=== PATIENT | female | born 1995 | race Caucasian/White ===

== ENCOUNTER → 2019-08-02 11:29 | Outpatient (BNVA) | payer OTHER, SELFPAY | PROVIDERS: Family Provider Family Medicine; PCP Family Medicine; Visit Provider Family Medicine | DX: M25.50 Pain in unspecified joint (principal); D64.9 Anemia, unspecified | CPT/HCPCS: 83540; 84550; 85651; 86431; 86618; 86666; 86757 ==

== ENCOUNTER → 2019-10-26 10:34 | Outpatient (BNVA) | payer OTHER, SELFPAY | PROVIDERS: Family Provider Family Medicine; PCP Family Medicine; Visit Provider Family Medicine | DX: M10.9 Gout, unspecified (principal); Z83.49 Family history of other endocrine, nutritional and metabolic diseases; M10.00 Idiopathic gout, unspecified site | CPT/HCPCS: 84443; 84550; 85651 ==

== ENCOUNTER → 2021-01-30 14:17 | Outpatient (BNVA) | payer OTHER, SELFPAY | PROVIDERS: Family Provider Family Medicine; PCP Family Medicine; Visit Provider Family Medicine | DX: Z01.419 Encounter for gynecological examination (general) (routine) without abnormal findings (principal) | CPT/HCPCS: 88175 ==

== ENCOUNTER → 2021-04-03 11:04 | Outpatient (BNVA) | payer OTHER, SELFPAY | PROVIDERS: Family Provider Family Medicine; PCP Family Medicine; Visit Provider Family Medicine | DX: M10.9 Gout, unspecified (principal) | CPT/HCPCS: 84550 ==

== ENCOUNTER → 2021-09-11 12:15 | Outpatient (BNVA) | payer OTHER, SELFPAY | PROVIDERS: Family Provider Family Medicine; PCP Family Medicine; Visit Provider Family Medicine | DX: M10.9 Gout, unspecified (principal); E66.9 Obesity, unspecified; G47.00 Insomnia, unspecified; F32.1 Major depressive disorder, single episode, moderate; Z83.49 Family history of other endocrine, nutritional and metabolic diseases | CPT/HCPCS: 80053; 80061; 84443; 84550; 85025 ==

== ENCOUNTER 2021-11-10 16:40 | Outpatient (CLI) | payer OTHER, SELFPAY ==
[2021-11-10 17:17] LABS: Erythrocyte Sedimentation Rate 7 mm/hr (0-15)
[2021-11-10 18:26] LABS: 25 Hydroxy Vitamin D 27 ng/mL (30-100); C Reactive Protein 16.4 mg/L (0.0-4.9)
[2021-11-12 14:07] LABS: Cyclic Citrullinated Peptide <16 UNITS
[2021-11-13 12:48] LABS: COMPLEMENT COMPONENT C3C 186 mg/dL (83-193); COMPLEMENT COMPONENT C4C 34 mg/dL (15-57)
[2021-11-13 12:57] LABS: COMPLEMENT, TOTAL (CH50) 44 U/mL (31-60)
[2021-11-16 10:18] LABS: THYROID PEROXIDASE ANTIBODIES <1 IU/mL (<9)
[2021-11-16 17:32] LABS: CENTROMERE B ANTIBODY <1.0 NEG AI (<1.0 NEG); JO-1 ANTIBODY <1.0 NEG AI (<1.0 NEG); RNP ANTIBODY <1.0 NEG AI (<1.0 NEG); SCL-70 ANTIBODY <1.0 NEG AI (<1.0 NEG); SJOGREN'S ANTIBODY (SS-A) <1.0 NEG AI (<1.0 NEG); SM ANTIBODY <1.0 NEG AI (<1.0 NEG); SS-B 2.3 POS AI (<1.0 NEG)
[2021-11-17 16:07] LABS: ANA SCREEN, IFA NEGATIVE (NEGATIVE)
[2021-11-24 15:37] LABS: DNA AB (DS) CRITHIDIA,IFA NEGATIVE (NEGATIVE)
== END 2021-11-10 16:41 | disposition home or self-care (01) ==
LOC: LAB 16:44
PROVIDERS: Family Provider Family Medicine; PCP Family Medicine; Visit Provider Internal Medicine Rheumatology
DX: M19.90 Unspecified osteoarthritis, unspecified site (principal); Z79.899 Other long term (current) drug therapy
CPT/HCPCS: 36415; 82306; 85651; 86140; 86160; 86162; 86200; 86235; 86255; 86376; 86431

== ENCOUNTER 2022-02-22 16:01 | Outpatient (CLI) | payer OTHER, SELFPAY ==
[2022-02-22 16:47] LABS: Basophils # 0.1 10^3/uL (0.0-0.1); Basophils % 0.5 %; Eosinophils # 0.1 10^3/uL (0.0-0.8); Eosinophils % 0.6 %; Hematocrit 38.6 % (37.0-47.0); Hemoglobin 12.6 g/dL (11.5-15.3); Lymphocytes # 4.3 10^3/uL (0.8-4.8); Lymphocytes % 36.5 %; Mean Corpuscular HGB Conc 32.6 g/dL (30.0-36.0); Mean Corpuscular Volume 88.9 fl (81-99); Mean Platelet Volume 10.9 fL (7.4-10.4); Monocytes # 0.9 10^3/uL (0.2-0.9); Monocytes % 7.4 %; Neutrophils # 6.46 10^3/uL (1.8-7.7); Neutrophils % 54.7 %; Nucleated Red Blood Cells % 0 %; Platelet Count 402 10^3/cmm (130-400); Red Blood Count 4.34 10^6/uL (4.1-5.3); Red Cell Distribution Width 13.7 % (12.1-15.1); White Blood Count 11.8 10^3/uL (4.0-10.0)
[2022-02-22 17:26] LABS: Alanine Aminotransferase 30 U/L (0-33); Albumin Level 3.9 g/dL (3.5-5.2); Alkaline Phosphatase 78 U/L (35-105); Aspartate Amino Transferase 34 U/L (0-32); Globulin 3.5 g/dL (1.3-4.6); Glomerular Filtration Rate 122.8 mL/min (90-130); Total Bilirubin 0.2 mg/dL (0.15-1.2); Total Protein 7.4 g/dL (6.6-8.7)
== END 2022-02-22 16:02 | disposition home or self-care (01) ==
PROVIDERS: PCP Family Medicine; Visit Provider Internal Medicine Rheumatology
DX: M19.90 Unspecified osteoarthritis, unspecified site (principal); M35.00 Sjogren syndrome, unspecified; Z79.899 Other long term (current) drug therapy
CPT/HCPCS: 80076; 82565; 85025

== ENCOUNTER 2022-08-18 17:05 | Outpatient (CLI) | payer OTHER, SELFPAY ==
--- NOTE | 2022-08-18 17:24 | XR_ITS ---
WS: [id number] EXAMINATION: XR sacroiliac jts m 3V [id number] REASON FOR EXAM: M19.90 - Unspecified osteoarthritis, unspecified site COMPARISON: None available. ORDER DATE: 08/18/2022 5:24 PM FINDINGS: There is no sign of any acute osseous or articular abnormality. There are no specific soft tissue abn ormalities. SI joints normal without sclerosis XR/XR sacroiliac jts m 3V [id number] IMPRESSION: No abnormality noted
--- NOTE | 2022-08-18 17:24 | XR_ITS ---
WS: [id number] EXAMINATION: XR lumbar spine 2-3V* [id number] L-SPINE : 3 views REASON FOR EXAM: M19.90 - Unspecified osteoarthritis, unspecified site COMPARISON: None available. ORDER DATE: 08/18/2022 5:24 PM FINDINGS: The lumbar vertebral bodies and the disc spaces are normal in width. In the lumbar vertebra, there i s no evidence of compression deformities or spondylolisthesis. XR/XR lumbar spine 2-3V* [id number] IMPRESSION: UNREMARKABLE LUMBAR SPINE STUDY
== END 2022-08-18 17:06 | disposition home or self-care (01) ==
PROVIDERS: PCP Family Medicine; Visit Provider Internal Medicine Rheumatology
DX: M19.90 Unspecified osteoarthritis, unspecified site (principal); M54.50 Low back pain, unspecified
CPT/HCPCS: 72100; 72202